=== PATIENT | male | born 1970 | race Caucasian/White ===

== ENCOUNTER → 2024-09-04 | Outpatient (CLI) | payer BC, SELFPAY ==
--- NOTE | 2024-09-04 06:45 | RAD_ITS ---
PROCEDURE: ORBITS FOR FOREIGN BODY REASON FOR EXAM: Metal history. Pre MRI clearance. TECHNIQUE: 2 view(s) of the orbits. COMPARISON: None RAD/Orbits for Foreign Body IMPRESSION: NO METALLIC RADIOPAQUE FOREIGN BODIES PROJECT AT THE ORBITS. Reading Location: [id number]
--- NOTE | 2024-09-04 07:04 | MRI_ITS ---
PROCEDURE: BRAIN W/WO CONTRAST REASON FOR EXAM: Asymmetric hearing loss. TECHNIQUE: MRI of the brain, with attention to the internal auditory canals, without and with contrast. COMPARISON: None. FINDINGS: Diffusion weighted images demonstrate no area of restricted diffusion. [id number] mucosal thickening is seen throughout the right frontal, bilateral ethmoid, and bilateral maxillary sinuses. The remaining paranasal sinuses appear clear, as do the mastoid air cells. Internal auditory canals appear symmetric and within normal range, without evidence of mass or area of abnormal postcontrast enhancement. No intracranial mass or mass effect is seen. No extra-axial fluid collection is noted. Ventricles appear symmetric and within the normal range. No orbital pathology is noted. MRI/Brain W/WO Contrast IMPRESSION: 1. Internal auditory canals appear symmetric and within the normal range, witho ut evidence of mass, asymmetry, or abnormal enhancement. 2. Chronic appearing paranasal sinus disease. 3. No acute intracranial process is seen. Reading Location: [id number]
== END | disposition home or self-care (01) ==
PROVIDERS: PCP Family Medicine; Referring Provider Otolaryngology; Visit Provider Otolaryngology
DX: H90.3 Sensorineural hearing loss, bilateral (principal)
CPT/HCPCS: 70030; 70553; A9575